=== PATIENT | male | born 1970 | race Caucasian/White ===

== ENCOUNTER 2017-08-30 12:30 | Emergency (ER) | payer MEDICAID ==
[~2017-08-30] VITALS: Ht 172.7 cm; Wt 74.8 kg
[2017-08-30 12:38] VITALS: BP_SYST 137
== END 2017-08-30 13:00 | disposition left against medical advice (07) ==
LOC: SED 12:30
DX: F41.0 Panic disorder [episodic paroxysmal anxiety] (principal)
CPT/HCPCS: 99284